=== PATIENT | male | born 1970 | race African-American/Black ===

== ENCOUNTER → 2023-09-11 | Outpatient (CLI) | payer BC ==
[2023-09-11 18:19] LABS: CLARITY URINE CLEAR (CLEAR); COLOR URINE YELLOW (YELLOW); GLUCOSE URINE NEGATIVE (NEGATIVE); KETONES URINE NEGATIVE (NEGATIVE); LEUKOCYTE ESTERASE URINE NEGATIVE (NEGATIVE); NITRITE URINE NEGATIVE (NEGATIVE); OCCULT BLOOD URINE NEGATIVE (NEGATIVE); PH URINE 7.5 (4.5-8.0); PROTEIN URINE NEGATIVE (NEGATIVE); SPECIFIC GRAVITY URINE 1.012 (1.005-1.030)
[2023-09-11 18:33] LABS: BASOPHILS % 0.7 % (0.0-2.0); EOSINOPHILS % 3.4 % (0.0-5.0); HEMATOCRIT. 37.7 % (42.0-52.0); HEMOGLOBIN. 12.9 g/dL (14.0-18.0); LYMPHOCYTES % 44.6 % (20.0-50.0); MEAN CORPUSCULAR HEMOGLOBIN 30.7 pg (28.0-32.0); MEAN CORPUSCULAR HGB CONC 34.2 g/dL (31.0-37.0); MEAN CORPUSCULAR VOLUME 89.9 fL (80.0-94.0); MEAN PLATELET VOLUME 9.5 fl (7.4-10.4); NEUTROPHILS % 42.3 % (40.0-76.0); PLATELET 250 x1000/uL (130-400); RED BLOOD CELL COUNT 4.19 mill/uL (4.7-6.1); RED CELL DISTRIBUTION WIDTH 13.2 % (11.6-14.6); WHITE BLOOD COUNT 4.3 x1000/uL (4.5-11.0)
[2023-09-11 18:44] LABS: CARBON DIOXIDE 30 mEq/L (21-32); CHLORIDE 108 mEq/L (98-107); POTASSIUM 4.2 mEq/L (3.5-5.1); SODIUM 138 mEq/L (136-145)
[2023-09-11 18:45] LABS: CALCIUM 9.1 mg/dL (8.7-10.4)
[2023-09-11 18:49] LABS: CREATININE 0.7 mg/dL (0.6-1.3); GLUCOSE 106 mg/dL (70-105); URIC ACID 5.7 mg/dL (3.7-9.2)
[2023-09-11 18:50] LABS: LDL CHOLESTEROL 106 mg/dL (5-100); TRIGLYCERIDE 201 mg/dL (0-150); UREA NITROGEN BLOOD 11 mg/dL (9-23)
[2023-09-11 18:51] LABS: ALANINE AMINOTRANSFERASE 16 IU/L (10-49); ALBUMIN 4.4 g/dL (3.2-4.8); ASPARTATE AMINOTRANSFERASE 26 IU/L (<34); C REACTIVE PROTEIN QUANT 0.4 mg/L (0.0-3.0)
[2023-09-11 18:52] LABS: BILIRUBIN TOTAL 0.7 mg/dL (0.1-1.0); CHOLESTEROL 167 mg/dL (<200); HDL CHOLESTEROL 39 mg/dL (>55); PROTEIN TOTAL 6.8 g/dL (6.0-8.3)
[2023-09-11 18:54] LABS: FOLIC ACID (FOLATE) SERUM 17.02 ng/mL (>5.38); THYROID STIMULATING HORMONE 2.91 uIU/mL (0.55-4.78)
[2023-09-11 18:56] LABS: VITAMIN B12 SERUM 506 pg/mL (211-911)
[2023-09-11 19:07] LABS: HEPATITIS B SURFACE ANTIGEN NEGATIVE (Negative)
[2023-09-11 19:10] LABS: ERYTHROCYTE SEDIMENTATION RATE 2 mm/hr (0-20)
[2023-09-11 19:28] LABS: HEPATITIS A AB IGM NEGATIVE (Negative); HEPATITIS B CORE AB IGM NEGATIVE (Negative)
[2023-09-11 19:29] LABS: HEPATITIS C AB NON REACTIVE (Neg) (Negative)
[2023-09-13 09:09] LABS: HIV SCREEN 4G Non Reactive (Non Reactive); RF PROFILE < 10.0 IU/mL (<14.0); VITAMIN D 25-OH 37.2 ng/mL (30.0-100.0)
[2023-09-13 19:09] LABS: CCP IgG/IgA PROFILE 3 units (0-19)
[2023-09-15 10:10] LABS: ANTI-NUCLEAR ANTIBODIES DIRECT Positive (Negative)
== END | disposition home or self-care (01) ==
LOC: LAB 09:15
PROVIDERS: ATTEND Internal Medicine Geriatric Medicine
DX: Z00.01 Encounter for general adult medical examination with abnormal findings (principal)
CPT/HCPCS: 36415; 80053; 80061; 81003; 82306; 82607; 82746; 83036; 84443; 84550; 85025; 85651; 86038; 86140; 86200; 86431; 86592; 86705; 86709; 87340; 87389

== ENCOUNTER 2023-11-25 07:22 | Emergency (ER) | payer BC ==
[~2023-11-25] VITALS: Ht 177.8 cm; Wt 82.0 kg
[2023-11-25 07:29] VITALS: O2SAT 99
[2023-11-25] MEDS ORDERED: IBUP-2030 MT (09:28)
[2023-11-25 10:11] VITALS: BP 128/87; PULSE 92; RESP 16; TEMP 37.00296; O2SAT 99
[2023-11-25] MEDS: KETOROLAC 30MG/ML VIAL IM STA (10:20)
[2023-11-25] MEDS: HYDROCODONE/ACETAMINOPHEN 5/325MG TABLET PO STA (10:20)
== END 2023-11-25 10:43 | disposition home or self-care (01) ==
LOC: ER 07:22
DX: S93.401A Sprain of unspecified ligament of right ankle, initial encounter (principal); X58.XXXA Exposure to other specified factors, initial encounter; Y93.89 Activity, other specified; Y92.89 Other specified places as the place of occurrence of the external cause; Y99.8 Other external cause status
CPT/HCPCS: 99283; 73600; J1885

== ENCOUNTER 2023-11-27 06:48 | Emergency (ER) | payer BC ==
[~2023-11-27] VITALS: Ht 177.8 cm; Wt 82.0 kg
[~2023-11-27 06:48] MED LIST: IBUP-2030 MT
[2023-11-27 07:14] VITALS: O2SAT 100
[2023-11-27] MEDS ORDERED: CLINDAMYCIN 600 MG in DEXTROSE 5% WATER 50 ML IV ONE (07:45)
[2023-11-27] MEDS: SODIUM CHLORIDE 0.9% 1,000 ML IV ONE (07:52)
[2023-11-27] MEDS: CLINDAMYCIN 600MG PREMIX 50 ML IV NR (07:53)
[2023-11-27 07:58] LABS: HEMATOCRIT. 35.3 % (42.0-52.0); HEMOGLOBIN. 11.9 g/dL (14.0-18.0); MEAN CORPUSCULAR HEMOGLOBIN 30.4 pg (28.0-32.0); MEAN CORPUSCULAR HGB CONC 33.6 g/dL (31.0-37.0); MEAN CORPUSCULAR VOLUME 90.4 fL (80.0-94.0); PLATELET 249 x1000/uL (130-400); RED BLOOD CELL COUNT 3.91 mill/uL (4.7-6.1); RED CELL DISTRIBUTION WIDTH 13.9 % (11.6-14.6); WHITE BLOOD COUNT 14.2 x1000/uL (4.5-11.0)
[2023-11-27 08:01] LABS: CHLORIDE 105 mEq/L (98-107); POTASSIUM 3.6 mEq/L (3.5-5.1); SODIUM 135 mEq/L (136-145)
[2023-11-27 08:02] LABS: CALCIUM 8.7 mg/dL (8.7-10.4); CARBON DIOXIDE 26 mEq/L (21-32); DIFFERENTIAL COMMENT 1
[2023-11-27 08:07] LABS: CREATININE 0.9 mg/dL (0.6-1.3); GLUCOSE 227 mg/dL (70-105); UREA NITROGEN BLOOD 10 mg/dL (9-23)
[2023-11-27] MEDS: HYDROCODONE/ACETAMINOPHEN 5/325MG TABLET PO ONE (08:22)
[2023-11-27 09:52] LABS: PLATELET ESTIMATE NORMAL
[2023-11-27] MEDS ORDERED: T3 PO (09:58)
[2023-11-27] MEDS ORDERED: CLIN-116 MT (09:58)
[2023-11-27 10:35] VITALS: BP 130/86; PULSE 75; RESP 18; TEMP 36.50292; O2SAT 100
== END 2023-11-27 10:37 | disposition home or self-care (01) ==
LOC: ER 06:48
DX: L03.115 Cellulitis of right lower limb (principal)
CPT/HCPCS: 80048; 83605; 85025; 87040; 36415; 93971; 96365; 99291; J3490; J7030; Z7610 ×3; J7060

== ENCOUNTER 2023-12-02 17:49 | Inpatient (IN) | payer BC ==
[~2023-12-02] VITALS: Ht 177.8 cm; Wt 83.9 kg
[~2023-12-02 17:49] MED LIST changes: +CLIN-116 MT; +T3 PO
[2023-12-02 18:00] VITALS: BP 145/85; PULSE 82; RESP 20; TEMP 36.33624; TEMP 36.3624; O2SAT 98
[2023-12-02 20:00] VITALS: BP 125/74; PULSE 84; RESP 16; TEMP 37.11408
[2023-12-02] MEDS ORDERED: SODIUM CHLORIDE 0.9% 1000ML BAG (SEPSIS BOLUS) IV ONE (20:00)
[2023-12-02] MEDS ORDERED: DEXTROSE 50% WATER 50ML SYRINGE IV PRN (20:00)
[2023-12-02] MEDS ORDERED: IPRATROPIUM/ALBUTEROL 0.5-3(2.5)MG/3ML NEB HHN PRN (20:00)
[2023-12-02] MEDS ORDERED: ONDANSETRON HCL 4MG/2ML INJ IV PRN (20:00)
[2023-12-02] MEDS ORDERED: NALOXONE HCL 0.4MG/ML VIAL IV PRN (20:45)
[2023-12-02] MEDS: FAMOTIDINE 20MG/2ML VIAL IV SCH (20:50)
[2023-12-02] MEDS: MORPHINE SULFATE 4 MG/ML INJ (FOR IV/IM USE) IV PRN (20:50)
[2023-12-02] MEDS: BLOOD SUGAR DIAGNOSTIC STRIP TEST SCH (21:00)
[2023-12-02] MEDS: PIPERACILLIN/TAZO 3.375G/50ML IV NR (21:11)
[2023-12-02] MEDS: SODIUM CHLORIDE 0.9% 2,500 ML IV SCH (21:11)
[2023-12-02 21:35] LABS: BASOPHILS % 0.6 % (0.0-2.0); DIFFERENTIAL COMMENT 0; EOSINOPHILS % 3.2 % (0.0-5.0); HEMATOCRIT. 35.6 % (42.0-52.0); LYMPHOCYTES % 13.1 % (20.0-50.0); MEAN CORPUSCULAR HEMOGLOBIN 30.6 pg (28.0-32.0); MEAN CORPUSCULAR HGB CONC 33.8 g/dL (31.0-37.0); MEAN CORPUSCULAR VOLUME 90.4 fL (80.0-94.0); MEAN PLATELET VOLUME 8.5 fl (7.4-10.4); MONOCYTES % 6.3 % (2.0-8.0); NEUTROPHILS % 76.8 % (40.0-76.0); PLATELET 491 x1000/uL (130-400); RED BLOOD CELL COUNT 3.94 mill/uL (4.7-6.1); RED CELL DISTRIBUTION WIDTH 13.8 % (11.6-14.6); WHITE BLOOD COUNT 11.2 x1000/uL (4.5-11.0)
[2023-12-02 21:42] LABS: CHLORIDE 105 mEq/L (98-107); POTASSIUM 4.2 mEq/L (3.5-5.1); SODIUM 137 mEq/L (136-145)
[2023-12-02 21:43] LABS: CALCIUM 8.8 mg/dL (8.7-10.4); CARBON DIOXIDE 24 mEq/L (21-32)
[2023-12-02 21:48] LABS: GLUCOSE 194 mg/dL (70-105); UREA NITROGEN BLOOD 13 mg/dL (9-23)
[2023-12-02 21:50] LABS: LACTIC ACID 3.4 mmol/L (0.4-2.0)
[2023-12-02] MEDS ORDERED: VANCOMYCIN 1.5GM PMX (XELLIA) 300 ML IV NR (22:00)
[2023-12-02] MEDS: VANCOMYCIN 750MG PMX (XELLIA) 150 ML IV SCH (22:00)
[2023-12-03] VITALS: BP 114/64; PULSE 92; RESP 18; TEMP 38.28084; O2SAT 97
[2023-12-03 04:00] VITALS: BP 139/84; PULSE 77; RESP 20; TEMP 34.28052; O2SAT 97
[2023-12-03] MEDS: CLINDAMYCIN 600MG PREMIX 50 ML IV SCH (05:07)
[2023-12-03] MEDS: PIPERACILLIN/TAZO 3.375G/50ML 50 ML IV SCH (06:51)
[2023-12-03 07:14] LABS: CHLORIDE 107 mEq/L (98-107); POTASSIUM 4.7 mEq/L (3.5-5.1); SODIUM 140 mEq/L (136-145)
[2023-12-03 07:15] LABS: CARBON DIOXIDE 27 mEq/L (21-32)
[2023-12-03 07:16] LABS: CALCIUM 8.9 mg/dL (8.7-10.4)
[2023-12-03 07:20] LABS: GLUCOSE 103 mg/dL (70-105); UREA NITROGEN BLOOD 12 mg/dL (9-23)
[2023-12-03 08:00] VITALS: BP 137/81; PULSE 75; RESP 18; TEMP 36.72516; O2SAT 98
[2023-12-03 08:05] LABS: BASOPHILS % 0.8 % (0.0-2.0); DIFFERENTIAL COMMENT 0; EOSINOPHILS % 2.8 % (0.0-5.0); HEMOGLOBIN. 11.9 g/dL (14.0-18.0); LYMPHOCYTES % 15.1 % (20.0-50.0); MEAN CORPUSCULAR HEMOGLOBIN 30.2 pg (28.0-32.0); MEAN CORPUSCULAR HGB CONC 33.9 g/dL (31.0-37.0); MEAN PLATELET VOLUME 8.5 fl (7.4-10.4); MONOCYTES % 9.4 % (2.0-8.0); NEUTROPHILS % 71.9 % (40.0-76.0); PLATELET 556 x1000/uL (130-400); RED BLOOD CELL COUNT 3.93 mill/uL (4.7-6.1); RED CELL DISTRIBUTION WIDTH 13.2 % (11.6-14.6); WHITE BLOOD COUNT 10.8 x1000/uL (4.5-11.0)
[2023-12-03 08:14] LABS: ALANINE AMINOTRANSFERASE 53 IU/L (10-49); ALBUMIN 3.6 g/dL (3.2-4.8); ASPARTATE AMINOTRANSFERASE 58 IU/L (<34); BILIRUBIN DIRECT 0.3 mg/dL (<=3.0); BILIRUBIN TOTAL 0.7 mg/dL (0.1-1.0); PROTEIN TOTAL 8.1 g/dL (6.0-8.3)
[2023-12-03] MEDS: ENOXAPARIN 40MG/0.4ML SYR SUBCUT SCH (08:18)
[2023-12-03] MEDS: TETANUS AND DIPHTHERIA TOX/PF 0.5ML SYR (ADULT) IM ONE (08:20)
[2023-12-03] MEDS: VANCOMYCIN 750MG PMX (XELLIA) 150 ML IV SCH (10:08)
[2023-12-03 12:00] VITALS: BP 133/81; PULSE 70; RESP 20; TEMP 36.55848; O2SAT 95
[2023-12-03] MEDS ORDERED: VANCOMYCIN 1GM PMX (XELLIA) 200 ML IV SCH (13:00)
[2023-12-03] MEDS ORDERED: PIPERACILLIN/TAZO 3.375G/50ML 50 ML IV SCH (14:00)
[2023-12-03] MEDS: SODIUM HYPOCHLORITE 0.125% 473ML SOLUTION TOP SCH (14:17)
[2023-12-03 16:00] VITALS: BP 128/81; PULSE 75; RESP 18; TEMP 36.55848; O2SAT 95
[2023-12-03] MEDS: FAMOTIDINE 20MG/2ML VIAL IV SCH (16:05)
[2023-12-03] MEDS: MEROPENEM 1G/100ML 100 ML IV SCH (17:56)
[2023-12-03 20:00] VITALS: BP 119/69; PULSE 88; RESP 18; TEMP 36.61404; O2SAT 88
[2023-12-03] MEDS: DOXYCYCLINE HYCLATE 100MG CAPSULE PO SCH (20:40)
[2023-12-03] MEDS: VANCOMYCIN 1GM PMX (XELLIA) 200 ML IV SCH (20:41)
[2023-12-03] MEDS: MELATONIN 3MG TABLET PO SCH (21:48)
[2023-12-04] VITALS: BP 120/2; PULSE 88; RESP 18; TEMP 36.22512
[2023-12-04 04:00] VITALS: BP 122/78; PULSE 79; RESP 18; TEMP 36.33624; O2SAT 95
[2023-12-04 07:58] LABS: BASOPHILS % 0.8 % (0.0-2.0); EOSINOPHILS % 2.9 % (0.0-5.0); HEMATOCRIT. 34.6 % (42.0-52.0); HEMOGLOBIN. 11.5 g/dL (14.0-18.0); LYMPHOCYTES % 14.4 % (20.0-50.0); MEAN CORPUSCULAR HEMOGLOBIN 29.8 pg (28.0-32.0); MEAN CORPUSCULAR HGB CONC 33.4 g/dL (31.0-37.0); MEAN CORPUSCULAR VOLUME 89.2 fL (80.0-94.0); MEAN PLATELET VOLUME 8.3 fl (7.4-10.4); MONOCYTES % 5.7 % (2.0-8.0); NEUTROPHILS % 76.2 % (40.0-76.0); PLATELET 508 x1000/uL (130-400); RED BLOOD CELL COUNT 3.88 mill/uL (4.7-6.1); RED CELL DISTRIBUTION WIDTH 13.5 % (11.6-14.6); WHITE BLOOD COUNT 11.1 x1000/uL (4.5-11.0)
[2023-12-04 08:00] VITALS: BP 126/75; PULSE 75; RESP 18; TEMP 36.72516; O2SAT 99
[2023-12-04 12:00] VITALS: BP 124/87; PULSE 78; RESP 19; TEMP 37.00296; O2SAT 98
[2023-12-04] MEDS: SODIUM HYPOCHLORITE (0.25%) 480ML SOLUTION (HALF STRENGTH) TOP SCH (12:00)
[2023-12-04 12:45] LABS: HEPATITIS B SURFACE ANTIGEN NEGATIVE (Negative)
[2023-12-04 12:47] LABS: HIV 1/2 AB P24AG Negative (Negative)
[2023-12-04 12:48] LABS: HEPATITIS C AB NON REACTIVE (Neg) (Negative)
[2023-12-04] MEDS: ASCORBIC ACID 500 MG TABLET PO NR (13:03)
[2023-12-04] MEDS: ZINC SULFATE 220 MG ( 50 ) CAPSULE PO SCH (13:04)
[2023-12-04 16:00] VITALS: BP 132/82; PULSE 82; RESP 18; TEMP 36.78072; O2SAT 99
[2023-12-04] MEDS: ACETAMINOPHEN 650MG/20.3ML UDC PO PRN (17:47)
[2023-12-04 20:00] VITALS: BP 127/85; PULSE 77; RESP 18; TEMP 36.3918; O2SAT 97
[2023-12-05] VITALS: BP 124/73; PULSE 78; RESP 19; TEMP 37.00296; O2SAT 97
[2023-12-05 04:00] VITALS: BP 124/73; PULSE 78; RESP 19; TEMP 37.00296; O2SAT 97
[2023-12-05 07:00] LABS: CHLORIDE 103 mEq/L (98-107); POTASSIUM 4.6 mEq/L (3.5-5.1); SODIUM 135 mEq/L (136-145)
[2023-12-05 07:02] LABS: CALCIUM 9.3 mg/dL (8.7-10.4); CARBON DIOXIDE 26 mEq/L (21-32)
[2023-12-05 07:07] LABS: CREATININE 0.9 mg/dL (0.6-1.3); GLUCOSE 119 mg/dL (70-105); UREA NITROGEN BLOOD 17 mg/dL (9-23)
[2023-12-05 07:08] LABS: ALANINE AMINOTRANSFERASE 153 IU/L (10-49)
[2023-12-05 07:09] LABS: ALBUMIN 3.6 g/dL (3.2-4.8); ASPARTATE AMINOTRANSFERASE 124 IU/L (<34); BILIRUBIN DIRECT 0.2 mg/dL (<=3.0); BILIRUBIN TOTAL 0.7 mg/dL (0.1-1.0); PROTEIN TOTAL 8.6 g/dL (6.0-8.3)
[2023-12-05 07:21] LABS: EOSINOPHILS % 3.1 % (0.0-5.0); LYMPHOCYTES % 15.5 % (20.0-50.0); MEAN CORPUSCULAR HGB CONC 33.4 g/dL (31.0-37.0); MEAN CORPUSCULAR VOLUME 89.6 fL (80.0-94.0); MEAN PLATELET VOLUME 8.4 fl (7.4-10.4); MONOCYTES % 6.9 % (2.0-8.0); NEUTROPHILS % 73.5 % (40.0-76.0); PLATELET 551 x1000/uL (130-400); RED BLOOD CELL COUNT 4.02 mill/uL (4.7-6.1); RED CELL DISTRIBUTION WIDTH 13.3 % (11.6-14.6); WHITE BLOOD COUNT 10.1 x1000/uL (4.5-11.0)
[2023-12-05 08:00] VITALS: BP 128/80; PULSE 82; RESP 20; TEMP 36.89184; O2SAT 99
[2023-12-05] MEDS: ASCORBIC ACID 500 MG TABLET PO SCH (08:11)
[2023-12-05] MEDS: PREGABALIN 50 MG CAPSULE PO SCH (10:15)
[2023-12-05 12:00] VITALS: BP 117/76; PULSE 72; RESP 16; TEMP 36.9474; O2SAT 99
[2023-12-05 16:00] VITALS: BP 124/72; PULSE 76; RESP 18; TEMP 36.72516; O2SAT 98
[2023-12-05 20:00] VITALS: BP 125/75; PULSE 75; RESP 20; TEMP 36.9474; O2SAT 99
[2023-12-06 04:00] VITALS: BP 120/71; PULSE 78; RESP 20; TEMP 36.114; O2SAT 99
[2023-12-06 08:00] VITALS: BP 118/76; PULSE 85; RESP 18; TEMP 36.3918; O2SAT 98
[2023-12-06] MEDS: FAMOTIDINE 20MG TABLET PO SCH (08:31)
[2023-12-06 12:00] VITALS: BP 125/81; PULSE 81; RESP 20; TEMP 36.78072; O2SAT 97
[2023-12-06 13:07] LABS: ANTI-NUCLEAR ANTIBODIES DIRECT Positive (Negative)
[2023-12-06 16:00] VITALS: BP 118/72; PULSE 84; RESP 19; TEMP 37.05852; O2SAT 100
[2023-12-06 20:00] VITALS: BP 114/68; PULSE 86; RESP 19; TEMP 36.6696; O2SAT 98
[2023-12-07] VITALS: BP 119/73; PULSE 81; RESP 19; TEMP 35.78064; O2SAT 100
[2023-12-07 04:00] VITALS: BP 117/70; PULSE 82; RESP 19; TEMP 36.9474; O2SAT 98
[2023-12-07 08:00] VITALS: BP 121/74; PULSE 69; RESP 18; TEMP 36.50292; O2SAT 97
[2023-12-07 08:17] LABS: BASOPHILS % 1.2 % (0.0-2.0); EOSINOPHILS % 6.2 % (0.0-5.0); HEMATOCRIT. 35.9 % (42.0-52.0); HEMOGLOBIN. 12.1 g/dL (14.0-18.0); LYMPHOCYTES % 31.1 % (20.0-50.0); MEAN CORPUSCULAR HEMOGLOBIN 30.2 pg (28.0-32.0); MEAN CORPUSCULAR HGB CONC 33.8 g/dL (31.0-37.0); MEAN CORPUSCULAR VOLUME 89.5 fL (80.0-94.0); MEAN PLATELET VOLUME 8.2 fl (7.4-10.4); MONOCYTES % 12.2 % (2.0-8.0); NEUTROPHILS % 49.3 % (40.0-76.0); PLATELET 522 x1000/uL (130-400); RED BLOOD CELL COUNT 4.01 mill/uL (4.7-6.1); RED CELL DISTRIBUTION WIDTH 13.3 % (11.6-14.6); WHITE BLOOD COUNT 5.3 x1000/uL (4.5-11.0)
[2023-12-07 08:32] LABS: CARBON DIOXIDE 23 mEq/L (21-32); CHLORIDE 104 mEq/L (98-107); POTASSIUM 4.2 mEq/L (3.5-5.1); SODIUM 134 mEq/L (136-145)
[2023-12-07 08:33] LABS: CALCIUM 9.2 mg/dL (8.7-10.4)
[2023-12-07 08:38] LABS: CREATININE 0.7 mg/dL (0.6-1.3); GLUCOSE 106 mg/dL (70-105); UREA NITROGEN BLOOD 19 mg/dL (9-23)
[2023-12-07 12:00] VITALS: BP 126/84; PULSE 79; RESP 19; TEMP 36.61404; O2SAT 97
[2023-12-07 16:00] VITALS: BP 106/67; PULSE 77; RESP 18; TEMP 37.00296; O2SAT 98
[2023-12-07 20:00] VITALS: BP 116/71; PULSE 86; RESP 19; TEMP 36.50292; O2SAT 99
[2023-12-08] VITALS: BP 111/69; PULSE 71; RESP 19; TEMP 36.3918; O2SAT 96
[2023-12-08 04:00] VITALS: BP 109/66; PULSE 82; RESP 19; TEMP 36.72516; O2SAT 98
[2023-12-08 08:00] VITALS: BP 103/69; PULSE 89; RESP 20; TEMP 36.55848; O2SAT 99
[2023-12-08] MEDS ORDERED: ASCO500T20 PO (09:49)
[2023-12-08] MEDS ORDERED: DAKIHS TOP (09:49)
[2023-12-08] MEDS ORDERED: DOXY100C5 PO (09:49)
[2023-12-08] MEDS ORDERED: ZINC1CAP2 PO (09:49)
[2023-12-08 10:11] LABS: ANGIOTENSION CONVERTING ENZYME 29 U/L (14-82)
[2023-12-08 12:00] VITALS: BP 118/75; PULSE 81; RESP 19; TEMP 36.55848; O2SAT 97
[2023-12-08 13:06] LABS: ATYPICAL P-ANCA <1:20 titer (Neg:<1:20); CYTOPLASMIC C-ANCA <1:20 titer (Neg:<1:20); PERINUCLEAR P-ANCA <1:20 titer (Neg:<1:20)
[2023-12-08 13:39] LABS: EOSINOPHILS % 5.8 % (0.0-5.0); HEMATOCRIT. 36.5 % (42.0-52.0); HEMOGLOBIN. 12.3 g/dL (14.0-18.0); LYMPHOCYTES % 36.1 % (20.0-50.0); MEAN CORPUSCULAR HGB CONC 33.6 g/dL (31.0-37.0); MEAN CORPUSCULAR VOLUME 89.4 fL (80.0-94.0); MEAN PLATELET VOLUME 8.8 fl (7.4-10.4); MONOCYTES % 13.4 % (2.0-8.0); NEUTROPHILS % 43.7 % (40.0-76.0); PLATELET 525 x1000/uL (130-400); RED BLOOD CELL COUNT 4.08 mill/uL (4.7-6.1); RED CELL DISTRIBUTION WIDTH 13.3 % (11.6-14.6); WHITE BLOOD COUNT 4.2 x1000/uL (4.5-11.0)
[2023-12-08 13:52] LABS: CARBON DIOXIDE 25 mEq/L (21-32); CHLORIDE 108 mEq/L (98-107); POTASSIUM 4.2 mEq/L (3.5-5.1); SODIUM 138 mEq/L (136-145)
[2023-12-08 13:53] LABS: CALCIUM 9.2 mg/dL (8.7-10.4)
[2023-12-08 13:57] LABS: CREATININE 0.7 mg/dL (0.6-1.3)
[2023-12-08 13:58] LABS: GLUCOSE 103 mg/dL (70-105); UREA NITROGEN BLOOD 18 mg/dL (9-23)
[2023-12-08 16:00] VITALS: BP 125/75; PULSE 84; RESP 19; TEMP 36.72516; O2SAT 97
[2023-12-08 19:06] LABS: ANTI-MYELOPEROXIDASE AB < 0.2 units (0.0-0.9); ANTI-PROTEINASE 3 ABS < 0.2 units (0.0-0.9)
[2023-12-08 20:00] VITALS: BP 113/75; PULSE 87; RESP 16; TEMP 36.9474; O2SAT 98
[2023-12-09] VITALS: BP 122/79; PULSE 77; RESP 16; TEMP 36.28068; O2SAT 100
[2023-12-09 04:00] VITALS: BP 122/77; PULSE 80; RESP 17; TEMP 36.3918; O2SAT 99
[2023-12-09 06:22] LABS: CARBON DIOXIDE 24 mEq/L (21-32); CHLORIDE 109 mEq/L (98-107); POTASSIUM 4.1 mEq/L (3.5-5.1); SODIUM 139 mEq/L (136-145)
[2023-12-09 06:23] LABS: CALCIUM 9.3 mg/dL (8.7-10.4)
[2023-12-09 06:28] LABS: CREATININE 0.7 mg/dL (0.6-1.3); GLUCOSE 112 mg/dL (70-105); UREA NITROGEN BLOOD 18 mg/dL (9-23)
[2023-12-09 08:00] VITALS: BP 130/78; PULSE 78; RESP 19; TEMP 36.50292; O2SAT 99
[2023-12-09 12:00] VITALS: BP 118/76; PULSE 73; RESP 19; TEMP 36.55848; O2SAT 98
[2023-12-09 15:06] LABS: ANTI-DNA DOUBLE STRANDED QUANT < 1 IU/mL (0-9)
[2023-12-09 16:00] VITALS: BP 116/72; PULSE 83; RESP 19; TEMP 36.72516; O2SAT 99
[2023-12-09 18:09] VITALS: BP 130/78; PULSE 78; TEMP 97.7; O2SAT 99
[2023-12-12 19:10] LABS: ANA HOMOGENEOUS PATTERN >1:1280 (.); ANA IFA Positive (.)
== END 2023-12-09 19:25 | disposition home health service (06) | DRG 603 ==
LOC: 6WST 17:49 → 6EST 12-06 09:50
PROVIDERS: ADMIT Internal Medicine Geriatric Medicine; ATTEND Internal Medicine Geriatric Medicine
DX: L03.115 Cellulitis of right lower limb (principal); R73.03 Prediabetes; R74.01 Elevation of levels of liver transaminase levels; M72.0 Palmar fascial fibromatosis [Dupuytren]; D64.9 Anemia, unspecified; R73.9 Hyperglycemia, unspecified; T24.201A Burn of second degree of unspecified site of right lower limb, except ankle and foot, initial encounter; X08.8XXA Exposure to other specified smoke, fire and flames, initial encounter; Y93.89 Activity, other specified; Y92.89 Other specified places as the place of occurrence of the external cause; Y99.8 Other external cause status
CPT/HCPCS: 36415; 71045; 73590; 73630; 73721; 76700; 80048; 80076; 80202; 82164; 82962; 83036; 83520; 83605; 84145; 85025; 85651; 86038; 86225; 86256; 86705; 87070; 87340; 90714; 93005; 93970; 97116; 97162; J1650; J2185; J2270; J2543; J3370; J3490

== ENCOUNTER → 2023-12-25 | Outpatient (CLI) | payer BC ==
[~2023-12-25] MED LIST changes: +ASCO500T20 PO; -CLIN-116 MT; +DAKIHS TOP; +DOXY100C5 PO; -IBUP-2030 MT; +ZINC1CAP2 PO
[2023-12-25 09:44] LABS: BASOPHILS % 0.5 % (0.0-2.0); EOSINOPHILS % 6.1 % (0.0-5.0); HEMATOCRIT. 37.2 % (42.0-52.0); HEMOGLOBIN. 12.4 g/dL (14.0-18.0); LYMPHOCYTES % 39.2 % (20.0-50.0); MEAN CORPUSCULAR HEMOGLOBIN 29.7 pg (28.0-32.0); MEAN CORPUSCULAR HGB CONC 33.4 g/dL (31.0-37.0); MONOCYTES % 9.1 % (2.0-8.0); NEUTROPHILS % 45.1 % (40.0-76.0); PLATELET 328 x1000/uL (130-400); RED BLOOD CELL COUNT 4.18 mill/uL (4.7-6.1); RED CELL DISTRIBUTION WIDTH 13.5 % (11.6-14.6); WHITE BLOOD COUNT 3.9 x1000/uL (4.5-11.0)
[2023-12-25 09:57] LABS: CHLORIDE 104 mEq/L (98-107); POTASSIUM 4.5 mEq/L (3.5-5.1); SODIUM 139 mEq/L (136-145)
[2023-12-25 09:58] LABS: CALCIUM 9.5 mg/dL (8.7-10.4); CARBON DIOXIDE 29 mEq/L (21-32)
[2023-12-25 10:03] LABS: CREATININE 0.7 mg/dL (0.6-1.3); GLUCOSE 97 mg/dL (70-105); UREA NITROGEN BLOOD 9 mg/dL (9-23)
[2023-12-25 10:05] LABS: ALANINE AMINOTRANSFERASE 57 IU/L (10-49); ASPARTATE AMINOTRANSFERASE 40 IU/L (<34); BILIRUBIN DIRECT 0.2 mg/dL (<=3.0); BILIRUBIN TOTAL 0.8 mg/dL (0.1-1.0); PROTEIN TOTAL 7.9 g/dL (6.0-8.3)
[2023-12-25 12:01] LABS: ERYTHROCYTE SEDIMENTATION RATE 20 mm/hr (0-20)
== END | disposition home or self-care (01) ==
LOC: LAB 08:52
PROVIDERS: ATTEND Internal Medicine Geriatric Medicine
DX: R74.01 Elevation of levels of liver transaminase levels (principal)
CPT/HCPCS: 36415; 80048; 80076; 85025; 85651; 86038; 86430